=== PATIENT | male | born 1960 | race Caucasian/White ===

== ENCOUNTER 2018-10-19 09:10 | Emergency (ER) | payer BC ==
--- NOTE | 2018-10-19 09:18 | EDM.PDOC ---
ED HPI GENERAL MEDICAL PROBLEM - General Chief Complaint: Chest Pain Stated Complaint: CHEST TIGHTNESS SENT FROM [facility] Time Seen by Provider: 10/19/18 09:17 Source of Information: Reports: Patient, RN Notes Reviewed - History of Present Illness INITIAL COMMENTS - FREE TEXT/NARRATIVE: 58-year-old male comes in with tightness upper mid chest that started yesterday , still present today. That does not radiate to his shoulder or arm. He also feels very mildly short of breath. No cough fever or chills. He was started on a new arthritis medicine about a week ago and apparently muscle aching is one of the possible side effects. However he also does have history of hypertension , diabetes. No known history for coronary artery disease. Chest Pain Score (Numeric/FACES): 2 - Related Data Allergies Allergy/AdvReac Type Severity Reaction Status Date / Time diclofenac [From Voltaren] Allergy Chest Verified 10/19/18 09:19 Tightness Latex, Natural Rubber Allergy Hives Verified 10/19/18 09:19 Home Meds: Home Meds Albuterol Sulfate [Proair Hfa] 2 puff INH Q4H PRN 10/19/18 [History] Atenolol 25 mg PO DAILY 10/19/18 [History] Chlorthalidone 12.5 mg PO DAILY 10/19/18 [History] Fexofenadine [Marsha] 60 mg PO DAILY 10/19/18 [History] Fluocinonide [Lidex 0.05% Crm] 60 gm TRDERM BID 10/19/18 [History] Hydroxychloroquine [Plaquenil] 200 mg PO BID 10/19/18 [History] Lisinopril 40 mg PO DAILY 10/19/18 [History] Pantoprazole Sodium 40 mg PO DAILY 10/19/18 [History] Rosuvastatin [Crestor] 5 mg PO DAILY 10/19/18 [History] metFORMIN [Glucophage] 1,000 mg PO BIDMEALS 10/19/18 [History] predniSONE [Prednisone] 5 mg PO DAILY 10/19/18 [History] ED ROS GENERAL - Review of Systems Review Of Systems: See Below Constitutional: Denies: Fever, Chills, Diaphoresis HEENT: Reports: No Symptoms Respiratory: Reports: Shortness of Breath (Exertional). Denies: Pleuritic Chest Pain, Cough Cardiovascular: Reports: Chest Pain (Mild). Denies: Lightheadedness, Palpitations GI/Abdominal: Denies: Abdominal Pain, Nausea, Vomiting Musculoskeletal: Denies: Neck Pain, Shoulder Pain, Arm Pain, Back Pain Skin: Reports: No Symptoms Neurological: Reports: No Symptoms ED EXAM, GENERAL - Physical Exam Exam: See Below General Appearance: Alert, No Apparent Distress Eye Exam: Bilateral Eye: PERRL Throat/Mouth: Normal Inspection Head: Atraumatic Neck: Supple, Full Range of Motion Respiratory/Chest: No Respiratory Distress, Lungs Clear, Normal Breath Sounds, Chest Non-Tender Cardiovascular: Regular Rate, Rhythm GI/Abdominal: Soft, Non-Tender Back Exam: No: CVA Tenderness (L), CVA Tenderness (R) Extremities: Normal Inspection. No: Pedal Edema, Leg Pain Neurological: Alert, Oriented, No Motor/Sensory Deficits Skin Exam: Warm, Dry, Normal Color EKG INTERPRETATION EKG Date: 10/19/18 Rhythm: NSR [place]: Normal P-Wave: Present QRS: Other (He does have Q waves V2) ST-T: Normal Course - Vital Signs Last Recorded V/S: Last Vital Signs Temp 97.4 F 10/19/18 09:15 Pulse 79 10/19/18 09:15 Resp 16 10/19/18 09:15 BP 155/78 H 10/19/18 09:15 Pulse Ox 97 10/19/18 09:15 - Orders/Labs/Meds Orders: Active Orders 24 hr Category Date Time Status EKG 12 Lead [EKG Documentation Completion] [RC] STAT Care 10/19/18 09:29 Active Peripheral IV Care [RC] . DIRECTED Care 10/19/18 09:30 Active Sodium Chloride 0.9% [Saline Flush] Med 10/19/18 09:29 Active 10 ml FLUSH ASDIRECTED PRN Peripheral IV Insertion Adult [OM.PC] Stat Oth 10/19/18 09:30 Ordered Medication Orders Sodium Chloride (Saline Flush) 10 ml FLUSH ASDIRECTED PRN PRN Reason: Keep Vein Open Last Admin: 10/19/18 09:59 Dose: 10 ml Labs: Laboratory Tests 10/19/18 10/19/18 Range/Units 09:20 09:20 WBC 6.53 (4.23-9.07) K/mm3 RBC 4.82 (4.63-6.08) M/mm3 Hgb 14.3 (13.7-17.5) gm/L Hct 41.7 (40.1-51.0) % MCV 86.5 (79.0-92.2) fl MCH 29.7 (25.7-32.2) pg MCHC 34.3 (32.2-35.5) g/dl RDW Std Deviation 41.9 (35.1-43.9) fL Plt Count 221 (163-337) K/mm3 MPV 9.3 L (9.4-12.3) fl Neut % (Auto) 66.3 (34.0-67.9) % Lymph % (Auto) 17.3 L (21.8-53.1) % Graves % (Auto) 11.8 (5.3-12.2) % Eos % (Auto) 3.4 (0.8-7.0) Baso % (Auto) 0.6 (0.1-1.2) % Neut # (Auto) 4.33 (1.78-5.38) K/mm3 Lymph # (Auto) 1.13 L (1.32-3.57) K/mm3 Graves # (Auto) 0.77 (0.30-0.82) K/mm3 Eos # (Auto) 0.22 (0.04-0.54) K/mm3 Baso # (Auto) 0.04 (0.01-0.08) K/mm3 Sodium 138 (136-145) mEq/L Potassium 3.5 (3.5-5.1) mEq/L Chloride 99 (98-107) mEq/L Carbon Dioxide 30 (21-32) mEq/L Anion Gap 12.5 (5-15) BUN 15 (7-18) mg/dL Creatinine 1.0 (0.7-1.3) mg/dL Est Cr Clr Drug Dosing 69.19 mL/min Estimated GFR (MDRD) > 60 (>60) mL/min BUN/Creatinine Ratio 15.0 (14-18) Glucose 199 H (74-106) mg/dL Calcium 9.4 (8.5-10.1) mg/dL Total Bilirubin 0.7 (0.2-1.0) mg/dL AST 33 (15-37) U/L ALT 61 (16-63) U/L Alkaline Phosphatase 46 (46-116) U/L Troponin I < 0.017 (0.00-0.056) ng/mL Total Protein 7.3 (6.4-8.2) g/dl Albumin 3.9 (3.4-5.0) g/dl Globulin 3.4 gm/dL Albumin/Globulin Ratio 1.2 (1-2) Meds: Medications Generic Name Dose Route Start Last Admin Trade Name Dalia PRN Reason Stop Dose Admin Sodium Chloride 10 ml 10/19/18 09:29 10/19/18 09:59 Saline Flush FLUSH 10 ml ASDIRECTED PRN Administration Keep Vein Open - Re-Assessments/Exams Free Text/Narrative Re-Assessment/Exam: 10/19/18 10:37 EKG does show Q waves V2, no ST changes. On did come back normal, chest x-ray normal, other labs are relatively normal as well he does have history of acid reflux so that may be contributing to his current symptoms. Discharge instructions as documented. Departure - Departure Time of Disposition: 10:34 Disposition: Home, Self-Care 01 Condition: Fair Clinical Impression: Atypical chest pain GERD (gastroesophageal reflux disease) Qualifiers: Esophagitis presence: without esophagitis Qualified Code(s): K21.9 - Gastro- esophageal reflux disease without esophagitis Referrals: Robbin Ludwig Jr, MD [Primary Care Provider] - Forms: ED Department Discharge Additional Instructions: Continue to not take the new arthritic medicine for now. Continue your GI and other medications as previously prescribed. Avoid fatty and spicy foods for now. Plan to follow-up with Dr. Ludwig early next week for recheck. Continue to work with your [facility] [employer] regarding treatment of your arthritis. Return to ED as needed if symptoms worsening in any way. - My Orders Last 24 Hours: My Active Orders 10/19/18 09:29 EKG 12 Lead [EKG Documentation Completion] [RC] STAT Sodium Chloride 0.9% [Saline Flush] 10 ml FLUSH ASDIRECTED PRN 10/19/18 09:30 Peripheral IV Care [RC] . DIRECTED Peripheral IV Insertion Adult [OM.PC] Stat - Assessment/Plan Last 24 Hours: My Active Orders 10/19/18 09:29 EKG 12 Lead [EKG Documentation Completion] [RC] STAT Sodium Chloride 0.9% [Saline Flush] 10 ml FLUSH ASDIRECTED PRN 10/19/18 09:30 Peripheral IV Care [RC] . DIRECTED Peripheral IV Insertion Adult [OM.PC] Stat
[2018-10-19] MEDS ORDERED: Sodium Chloride 0.9% 10 ML Syringe FLUSH PRN (09:29)
--- NOTE | 2018-10-19 10:23 | CR ---
Chest: Portable view of the chest was obtained. Comparison: No prior chest x-ray. Heart size and mediastinum are normal. Lungs are clear. Bony structures are unremarkable. Impression: 1. Nothing acute is seen on portable chest x-ray. Diagnostic code #1
== END 2018-10-19 10:51 | disposition home or self-care (01) ==
LOC: JD.ED 09:10
DX: K21.9 Gastro-esophageal reflux disease without esophagitis (principal); Z79.899 Other long term (current) drug therapy; Z88.6 Allergy status to analgesic agent; Z91.040 Latex allergy status
CPT/HCPCS: 36415; 71045; 71045-26; 80053; 84484; 85025; 93005; 93010; 99284; 99285-25

== ENCOUNTER 2021-10-01 12:52 | Emergency (ER) | payer BC ==
[2021-10-01] MEDS ORDERED: amLODIPine 5 MG Tab PO ONE (14:29)
== END 2021-10-01 14:50 | disposition home or self-care (01) ==
LOC: JD.ED 12:52
DX: I11.9 Hypertensive heart disease without heart failure (principal); E10.9 Type 1 diabetes mellitus without complications; M06.9 Rheumatoid arthritis, unspecified; Z88.8 Allergy status to other drugs, medicaments and biological substances; Z91.040 Latex allergy status; Z79.899 Other long term (current) drug therapy; Z79.84 Long term (current) use of oral hypoglycemic drugs
CPT/HCPCS: 36415; 71045; 80053; 83735; 84484; 85025; 93005; 99284; A9270

== ENCOUNTER 2021-10-06 03:24 | Emergency (ER) | payer BC ==
[2021-10-06] MEDS ORDERED: Famotidine 20 MG/2 ML SDV IVPUSH ONE (04:04)
[2021-10-06] MEDS ORDERED: predniSONE 20 MG Tab PO ONE (04:04)
[2021-10-06] MEDS ORDERED: Famotidine 20 MG Tab PO ONE (04:07)
== END 2021-10-06 04:21 | disposition home or self-care (01) ==
LOC: JD.ED 03:24
DX: T78.40XA Allergy, unspecified, initial encounter (principal); E78.00 Pure hypercholesterolemia, unspecified; I10 Essential (primary) hypertension; E10.9 Type 1 diabetes mellitus without complications; Z91.040 Latex allergy status; Z88.8 Allergy status to other drugs, medicaments and biological substances; Z79.899 Other long term (current) drug therapy; Z87.891 Personal history of nicotine dependence
CPT/HCPCS: 99283; A9270; J7512

== ENCOUNTER 2022-10-03 20:47 | Emergency (ER) | payer BC ==
[2022-10-03] MEDS ORDERED: Ondansetron 4 MG/2 ML SDV IVPUSH ONE (22:26)
[2022-10-03] MEDS ORDERED: HYDROmorphone 1 MG/ML Syringe IVPUSH STA (22:26)
[2022-10-03] MEDS ORDERED: Sodium Chloride 0.9% 1,000 ML IV SCH (22:30)
[2022-10-03] MEDS ORDERED: Sodium Chloride 0.9% 10 ML Syringe FLUSH ONE (23:38)
[2022-10-03] MEDS ORDERED: Iopamidol 612 MG/ML 100 ML Bottle IVPUSH ONE (23:38)
[2022-10-04] MEDS ORDERED: Lactated Ringers 1,000 ML IV ONE
[2022-10-04] MEDS ORDERED: HYDROmorphone 1 MG/ML Syringe IVPUSH ONE (00:06)
[2022-10-04] MEDS ORDERED: HYDROmorphone 0.5 MG/0.5 ML Syringe IVPUSH ONE (00:30)
== END 2022-10-04 02:26 | disposition home or self-care (01) ==
LOC: JD.ED 20:47
DX: R10.33 Periumbilical pain (principal); E11.65 Type 2 diabetes mellitus with hyperglycemia; R19.7 Diarrhea, unspecified; R74.8 Abnormal levels of other serum enzymes; E78.00 Pure hypercholesterolemia, unspecified; I10 Essential (primary) hypertension; E66.9 Obesity, unspecified; Z68.34 Body mass index [BMI] 34.0-34.9, adult; Z91.040 Latex allergy status; Z79.84 Long term (current) use of oral hypoglycemic drugs; Z79.899 Other long term (current) drug therapy; Z86.16 Personal history of COVID-19
CPT/HCPCS: 36415; 74177; 80053; 81001; 83690; 85025; 96361; 96374; 96375; 96376; 99284; J1170; J2405; J3490; J7030; J7120; Q9967

== ENCOUNTER 2024-02-29 03:42 | Emergency (ER) | payer BC ==
[2024-02-29 04:40] LABS: PCO2 VENOUS 51.9 mmHg (41-51); PH,VENOUS 7.34 (7.30-7.40)
[2024-02-29 04:41] LABS: BASE EXCESS VENOUS 0.7 (-4.0-2.0); BICARBONATE,VENOUS 27.1 meq/L (22-26); O2 SATURATION VENOUS 73
[2024-02-29] MEDS: Sodium Chloride 0.9% 1,000 ML IV ONE (04:43)
[2024-02-29] MEDS: Metoclopramide 10 MG/2 ML SDV IVPUSH ONE (04:43)
[2024-02-29] MEDS: Famotidine 20 MG/2 ML SDV IVPUSH ONE (04:43)
[2024-02-29 05:18] LABS: HEMATOCRIT 50.4 % (42.0-52.0); HEMOGLOBIN 17.6 gm/dl (14.0-18.0); MEAN CORPUSCULAR HEMOGLOBIN 29.1 pg (28.0-32.0); MEAN CORPUSCULAR HGB CONC 34.9 g/dl (32.0-36.0); MEAN CORPUSCULAR VOLUME 83.4 fl (83.0-99.0); PLATELET COUNT,PLT 294 K/mm3 (150-400); RED BLOOD CELL COUNT 6.04 M/mm3 (4.52-5.90); WHITE BLOOD CELL COUNT,WBC 12.13 K/mm3 (3.9-11.3)
[2024-02-29 05:19] LABS: BASOPHILS ABSOLUTE AUTO 0.1 K/mm3 (0.0-0.2); EOSINOPHILS ABSOLUTE AUTO 0.2 K/mm3 (0.0-0.4); EOSINOPHILS PERCENT AUTO 1.4 % (0.0-6.0); IMMATURE GRAN ABSOLUTE AUTO 0.15 K/mm3 (0.00-0.05); IMMATURE GRAN PERCENT AUTO 1.2 % (0.0-0.4); LYMPHOCYTES ABSOLUTE AUTO 2.7 K/mm3 (1.0-4.8); LYMPHOCYTES PERCENT AUTO 22.3 % (24.0-44.0); MEAN PLATELET VOLUME 9.9 fl (9.4-12.4); MONOCYTES ABSOLUTE AUTO 1.2 K/mm3 (0.0-0.8); MONOCYTES PERCENT AUTO 9.6 % (0.0-8.0); NEUTROPHILS ABSOLUTE AUTO 7.8 K/mm3 (1.8-7.7); NEUTROPHILS PERCENT AUTO 64.5 % (41.0-71.0)
[2024-02-29 06:08] LABS: COLOR,URINE Y (Yellow)
[2024-02-29 06:09] LABS: A/G RATIO 1.3 (1-2); ALBUMIN 4.2 g/dl (3.4-5.0); ANION GAP 16.2 (5-15); APPEARANCE,URINE CLEAR (Clear); BUN/CREATININE RATIO 26.4 (14-18); CALCIUM 9.3 mg/dL (8.5-10.1); CREATININE 1.4 mg/dL (0.7-1.3); EST CRCL DRUG DOSING (CG) 46.37 mL/min; POTASSIUM,K 3.2 mEq/L (3.5-5.1); PROTEIN TOTAL,TP 7.5 g/dl (6.4-8.2)
[2024-02-29 06:10] LABS: BILIRUBIN TOTAL 0.5 mg/dL (0.2-1.0); GLUCOSE,URINE NEGATIVE (Negative); KETONES,URINE NEGATIVE (Negative); PROTEIN,URINE 2+ (Negative)
[2024-02-29 06:11] LABS: BILIRUBIN,URINE 1+ (Negative); LEUKOCYTE ESTERASE,URINE NEGATIVE (Negative); NITRITE,URINE NEGATIVE (Negative); OCCULT BLOOD,URINE NEGATIVE (Negative); UROBILINOGEN,URINE 0.2 (0.2-1.0)
[2024-02-29 06:12] LABS: BACTERIA,URINE FEW /hpf (FEW); EPITHELIAL CELLS,URINE 0-5 /hpf (0-5); RBC,URINE NOT SEEN /hpf (0-5); WBC,URINE 0-5 /hpf (0-5)
[2024-02-29 06:13] LABS: MUCUS,URINE NOT SEEN /hpf (FEW)
[2024-02-29] MEDS: Iopamidol 612 MG/ML 100 ML Bottle IVPUSH ONE (06:40)
== END 2024-02-29 08:01 | disposition home or self-care (01) ==
LOC: JD.ED 03:42
DX: R11.2 Nausea with vomiting, unspecified (principal); R74.8 Abnormal levels of other serum enzymes; I10 Essential (primary) hypertension; E78.00 Pure hypercholesterolemia, unspecified; K21.9 Gastro-esophageal reflux disease without esophagitis; E11.9 Type 2 diabetes mellitus without complications; E66.9 Obesity, unspecified; Z86.16 Personal history of COVID-19; Z79.899 Other long term (current) drug therapy; Z79.84 Long term (current) use of oral hypoglycemic drugs; Z91.040 Latex allergy status; Z88.6 Allergy status to analgesic agent; Z88.8 Allergy status to other drugs, medicaments and biological substances; Z68.33 Body mass index [BMI] 33.0-33.9, adult
CPT/HCPCS: 36415; 71045; 74177; 80053; 81001; 82803; 82947; 83690; 84484; 85025; 93005; 96361; 96374; 96375; 99285; J2765; J3490; J7030; Q9967; 93010; 99284

== ENCOUNTER 2024-03-11 14:19 | Emergency (ER) | payer BC ==
[2024-03-11] MEDS: Sodium Chloride 0.9% 1,000 ML IV SCH (16:20)
[2024-03-11] MEDS: Potassium Chloride 10 MEQ in Premix Bag 1 BAG IV SCH (16:21)
[2024-03-11] MEDS: Potassium Chloride 20 MEQ Tab.ER PO ONE (16:24)
[2024-03-11 16:45] LABS: HEMOGLOBIN A1C 8.4 %
[2024-03-11 16:50] LABS: A/G RATIO 1.3 (1-2); ALANINE AMINOTRANSFERASE,ALT 36 U/L (16-63); ALBUMIN 3.7 g/dl (3.4-5.0); ALKALINE PHOSPHATASE 48 U/L (46-116); ANION GAP 11.7 (5-15); ASPARTATE AMNIOTRANSFERASE,AST 17 U/L (15-37); BILIRUBIN TOTAL 0.4 mg/dL (0.2-1.0); BLOOD UREA NITROGEN,BUN 10 mg/dL (7-18); BUN/CREATININE RATIO 11.1 (14-18); C-REACTIVE PROTEIN 0.36 mg/dL (<0.30); CALCIUM 7.1 mg/dL (8.5-10.1); CARBON DIOXIDE,CO2 33 mEq/L (21-32); CHLORIDE,CL 98 mEq/L (98-107); CREATININE 0.9 mg/dL (0.7-1.3); EST CRCL DRUG DOSING (CG) 72.13 mL/min; ESTIMATED GFR 95 mL/min (>60); GLUCOSE RANDOM 102 mg/dL (70-99); MAGNESIUM 0.6 mg/dL (1.8-2.4); POTASSIUM,K 2.7 mEq/L (3.5-5.1); PROTEIN TOTAL,TP 6.6 g/dl (6.4-8.2); SODIUM,NA 140 mEq/L (136-145)
[2024-03-11 16:55] LABS: IRON,FE 57 ug/dL (65-175); PERCENT FE SATURATION 17 % (20-55); TOTAL IRON BINDING CAPACITY 331 ug/dL (100-400); TRANSFERRIN 265 mg/dL (202-364)
[2024-03-11 17:14] LABS: TROPONIN I HIGH SENSITIVITY < 4 pg/mL (<=76)
[2024-03-11] MEDS: WATER IV SCH (19:58)
[2024-03-11] MEDS: MAGNESIUM SULFATE IV SCH (19:58)
[2024-03-12] MEDS: Magnesium Sulfate/Water 50 ML ONE (03:09)
[2024-03-12 06:40] LABS: ANION GAP 11.6 (5-15); CALCIUM 7.5 mg/dL (8.5-10.1); CREATININE 0.8 mg/dL (0.7-1.3); EST CRCL DRUG DOSING (CG) 81.15 mL/min; MAGNESIUM 3.7 mg/dL (1.8-2.4); POTASSIUM,K 2.6 mEq/L (3.5-5.1)
[2024-03-12] MEDS: Potassium Chloride 20 MEQ Tab.ER PO ONE (07:14)
[2024-03-12] MEDS: Acetaminophen 325 MG Tab PO ONE (07:25)
[2024-03-12] MEDS ORDERED: Lisinopril 10 MG Tab PO ONE (07:33)
[2024-03-12] MEDS: metFORMIN 500 MG Tab PO ONE ×2 (07:50→07:56)
[2024-03-12] MEDS: Rosuvastatin 10 MG Tab PO ONE (07:52)
[2024-03-12] MEDS: Pantoprazole 40 MG Tab.CR PO ONE (07:53)
[2024-03-12] MEDS: Hydroxychloroquine 200 MG Tab PO ONE (07:54)
[2024-03-12] MEDS: Chlorthalidone 25 MG Tab PO ONE (07:54)
[2024-03-12] MEDS: Lisinopril 20 MG Tab PO ONE (07:55)
[2024-03-12 10:35] LABS: ANION GAP 12.1 (5-15); BUN/CREATININE RATIO 7.8 (14-18); CALCIUM 7.6 mg/dL (8.5-10.1); CREATININE 0.9 mg/dL (0.7-1.3); EST CRCL DRUG DOSING (CG) 72.13 mL/min; POTASSIUM,K 3.1 mEq/L (3.5-5.1)
== END 2024-03-12 11:08 | disposition home or self-care (01) ==
LOC: JD.ED 14:19
DX: R20.2 Paresthesia of skin (principal); D50.9 Iron deficiency anemia, unspecified; E87.6 Hypokalemia; E83.42 Hypomagnesemia; I10 Essential (primary) hypertension; J45.909 Unspecified asthma, uncomplicated; K21.9 Gastro-esophageal reflux disease without esophagitis; E78.00 Pure hypercholesterolemia, unspecified; E66.9 Obesity, unspecified; E11.9 Type 2 diabetes mellitus without complications; Z88.8 Allergy status to other drugs, medicaments and biological substances; Z91.040 Latex allergy status; Z79.84 Long term (current) use of oral hypoglycemic drugs; Z86.16 Personal history of COVID-19; Z68.33 Body mass index [BMI] 33.0-33.9, adult
CPT/HCPCS: 36415; 80048; 80053; 83036; 83540; 83690; 83735; 83880; 84466; 84484; 86140; 93005; 96361; 96365; 96366; 96367; 99285-25; A9270-GY; J3475; J3480; J7030